=== PATIENT | female | born 1970 | race American Indian/Alaskan Native ===

== ENCOUNTER 2017-09-14 11:19 | Outpatient (CLI) | payer MEDICARE ==
[2017-09-14 11:33] LABS: Basophils # (Auto) 0.1 K/mm3 (0.0-0.1); Basophils % (Auto) 0.9 % (0.0-1.8); Eosinophils # (Auto) 0.1 K/mm3 (0.0-0.4); Hematocrit 21.9 % (30.3-42.9); Lymphocytes % (Auto) 11.8 % (13.4-35.0); Mean Corpuscular HGB Conc 32 % (30-34); Mean Corpuscular Volume 71 fl (79-97); Monocytes # (Auto) 0.8 K/mm3 (0.0-0.8); Monocytes % (Auto) 10.1 % (0.0-7.3); Platelet Count 393 K/mm3 (140-440); Red Blood Count 3.08 M/mm3 (3.65-5.03)
[2017-09-14 11:36] LABS: Mean Corpuscular Hemoglobin 23 pg (28-32); Red Cell Distribution Width 21.5 % (13.2-15.2)
[2017-09-14 11:56] LABS: Erythrocyte Sedimentation Rate > 140.0 mm/Hr (0-20)
[2017-09-14 11:59] LABS: C-Reactive Protein 10.3 mg/dL (0.00-1.30); Calcium 8.6 mg/dL (8.4-10.2)
== END 2017-09-14 11:20 | disposition home or self-care (01) ==
LOC: LABHHL 11:19
PROVIDERS: ATTEND Internal Medicine Cardiovascular Disease
DX: I50.9 Heart failure, unspecified (principal); Z79.01 Long term (current) use of anticoagulants; Z95.811 Presence of heart assist device
CPT/HCPCS: 36415; 80048; 80202; 85025; 85652; 86140

== ENCOUNTER 2017-09-17 11:39 | Outpatient (CLI) | payer MEDICARE ==
[2017-09-17 12:05] LABS: Basophils # (Auto) 0.1 K/mm3 (0.0-0.1); Basophils % (Auto) 0.9 % (0.0-1.8); Eosinophils # (Auto) 0.1 K/mm3 (0.0-0.4); Eosinophils % (Auto) 1.1 % (0.0-4.3); Hemoglobin 7.2 gm/dl (10.1-14.3); Lymphocytes # (Auto) 1.3 K/mm3 (1.2-5.4); Lymphocytes % (Auto) 14.8 % (13.4-35.0); Mean Corpuscular HGB Conc 34 % (30-34); Monocytes # (Auto) 0.7 K/mm3 (0.0-0.8); Monocytes % (Auto) 7.9 % (0.0-7.3); Platelet Count 435 K/mm3 (140-440); Red Blood Count 3.01 M/mm3 (3.65-5.03)
[2017-09-17 12:06] LABS: Mean Corpuscular Hemoglobin 24 pg (28-32); Mean Corpuscular Volume 70 fl (79-97); Red Cell Distribution Width 21.7 % (13.2-15.2)
[2017-09-17 12:13] LABS: C-Reactive Protein 8.6 mg/dL (0.00-1.30); Calcium 8.8 mg/dL (8.4-10.2)
[2017-09-17 12:48] LABS: Erythrocyte Sedimentation Rate > 140.0 mm/Hr (0-20)
== END 2017-09-17 11:40 | disposition home or self-care (01) ==
LOC: LABHHL 11:39
PROVIDERS: ATTEND Internal Medicine Cardiovascular Disease
DX: R70.0 Elevated erythrocyte sedimentation rate (principal)
CPT/HCPCS: 36415; 80048; 80202; 85025; 85652; 86140